=== PATIENT | female | born 1935 | race Caucasian/White ===

== ENCOUNTER 2021-09-22 10:16 | Observation (INO) ==
[2021-09-22 12:39] LABS: Bacteria,Urine Few per hpf (None-Few); Bilirubin,Urine Negative (Negative); Blood,Urine Negative (Negative); Clarity,Urine Clear (Clear); Color,Urine Light-Yellow (Yellow); Glucose,Urine (UA) Normal (Normal); Ketones,Urine Negative (Negative); Leukocyte Esterase,Urine Small (Negative); Mucus,Urine Few per lpf (None-Few); Nitrite,Urine Positive (Negative); PH,Urine 6.5 pH Units (5.0-8.0); Protein,Urine Negative (Neg-Trace); RBC,Urine 0-3 per hpf (0-3); Specific Gravity,Urine 1.009 (1.010-1.025); Urobilinogen,Urine Normal (Normal)
[2021-09-22 12:45] LABS: Basophils % 0.7 %; Immature Granulocytes % 0.4 % (0-4); Mean Corpuscular Volume 62.5 fL (83.0-100.0); Red Cell Distribution Width 19.9 % (11.5-14.5)
[2021-09-22 12:46] LABS: Basophils # 0.1 K/mcL (0.0-0.2); Eosinophils # 0.1 K/mcL (0.0-0.6); Eosinophils % 1.1 %; Hematocrit 21.8 % (35.3-44.9); Lymphocytes # 1.6 K/mcL (0.6-4.6); Lymphocytes % 13.7 %; Mean Corpuscular HGB Conc 26.1 g/dL (31.6-35.5); Mean Corpuscular Hemoglobin 16.3 pg (28.0-33.3); Mean Platelet Volume 8.7 fL (9.4-12.4); Monocytes # 1.5 K/mcL (0.0-1.3); Monocytes % 12.5 %; Neutrophils # 8.5 K/mcL (1.6-8.9); Platelet Count 545 K/mcL (140-400); Red Blood Count 3.49 M/mcL (3.82-4.97); Segmented Neutrophils % 71.6 %; White Blood Count 11.9 K/mcL (4.3-11.1)
[2021-09-22 12:56] LABS: Hemoglobin 5.7 g/dL (11.5-15.4)
[2021-09-22] MEDS ORDERED: cefTRIAXone 1,000 MG in Water for inj. (sterile) 10 ML IVP ONE (13:01)
[2021-09-22 13:05] LABS: BUN/Creatinine Ratio 29 (6-26); Blood Urea Nitrogen 24 mg/dL (8-23); Calcium 8.6 mg/dL (8.6-10.3); Carbon Dioxide 24 mEq/L (23-29); Chloride 106 mEq/L (98-107); Glucose 104 mg/dL (70-105); Osmolality,Calculated 290 (280-300); Potassium 3.9 mEq/L (3.5-5.1); Sodium 138 mEq/L (136-145); eGFR For African Americans > 60 (> 60); eGFR For Non-African Americans > 60 (> 60)
[2021-09-22 13:06] LABS: Troponin I < 0.03 ng/mL (< 0.04)
[2021-09-22] MEDS ORDERED: Pantoprazole 40 MG VIAL IVP ONE (13:16)
[2021-09-22 13:17] LABS: Thyroid Stimulating Hormone 1.692 mcIU/mL (0.340-5.600)
[2021-09-22 13:39] LABS: Anisocytosis 1+ (Not Present); Hypochromasia Present (Not Present); Microcytosis Present (Not Present)
[2021-09-22] MEDS ORDERED: 0.9 % Sodium Chloride 250 ML ONE (14:28)
[2021-09-22 14:42] LABS: Ferritin < 8 ng/mL (10-120)
[2021-09-22 14:53] LABS: Immature Reticulocyte % 32.8 % (11.0-38.0); Retculocyte # 0.06 M/mcL (0.05-0.10); Reticulocyte % 1.6 % (1.6-2.8)
[2021-09-22] MEDS ORDERED: ALPRAZolam 0.25 MG TABLET PO ONE (15:26)
[2021-09-22] MEDS ORDERED: Cyanocobalamin (B-12) 1,000 MCG/ML VIAL IM ONE (15:26)
[2021-09-22] MEDS ORDERED: ALPRAZolam 0.25 MG TABLET PO PRN (15:27)
[2021-09-22] MEDS ORDERED: Melatonin 3 MG TABLET PO PRN (15:28)
[2021-09-22] MEDS ORDERED: Ondansetron 4 MG/2 ML VIAL IVP PRN (15:28)
[2021-09-22] MEDS ORDERED: Acetaminophen 325 MG TABLET PO PRN (15:28)
[2021-09-22 16:19] LABS: Alanine Aminotransferase 10 Units/L (7-52); Albumin 3.9 g/dL (3.5-5.7); Albumin/Globulin Ratio 1.2 (1.1-2.2); Alkaline Phosphatase 68 Units/L (34-104); Aspartate Amino Transferase 15 Units/L (13-39); Bilirubin,Direct 0.1 mg/dL (0.0-0.2); Bilirubin,Indirect 0.3 mg/dL (0.0-1.0); Bilirubin,Total 0.4 mg/dL (0.3-1.0); Globulin 3.2 g/dL (2.4-3.5); Lactate Dehydrogenase 177 Units/L (140-271); Total Protein 7.1 g/dL (6.4-8.9)
[2021-09-22 16:38] LABS: C-Reactive Protein 5 mg/L (Less than 10)
[2021-09-22] MEDS ORDERED: SODIUM CHLORIDE/NAHCO3/KCL/PEG 4,000 ML SOLN.RECON PO ONE (17:00)
[2021-09-22 17:14] LABS: Estimated Average Glucose 143 mg/dl; Hemoglobin A1C 6.6 %
[2021-09-22] MEDS: Pantoprazole 40 MG in 0.9 % Sodium Chloride Mini Bag 100 ML IVC SCH ×4 (18:20→23:38)
[2021-09-22 21:02] LABS: Hematocrit 26.4 % (35.3-44.9); Hemoglobin 7.6 g/dL (11.5-15.4)
[2021-09-23 00:24] LABS: Hematocrit 25.2 % (35.3-44.9); Hemoglobin 7.3 g/dL (11.5-15.4); Mean Corpuscular Volume 65.5 fL (83.0-100.0); Mean Platelet Volume 8.4 fL (9.4-12.4); Platelet Count 517 K/mcL (140-400); Red Blood Count 3.85 M/mcL (3.82-4.97); Red Cell Distribution Width 22.7 % (11.5-14.5)
[2021-09-23 00:43] LABS: BUN/Creatinine Ratio 22 (6-26); Blood Urea Nitrogen 16 mg/dL (8-23); Calcium 8.5 mg/dL (8.6-10.3); Carbon Dioxide 24 mEq/L (23-29); Chloride 105 mEq/L (98-107); Glucose 101 mg/dL (70-105); Magnesium 2.1 mg/dL (1.6-2.6); Osmolality,Calculated 287 (280-300); Phosphorous 3.3 mg/dL (2.7-4.5); Sodium 138 mEq/L (136-145); eGFR For African Americans > 60 (> 60); eGFR For Non-African Americans > 60 (> 60)
[2021-09-23] MEDS: Pantoprazole 40 MG in 0.9 % Sodium Chloride Mini Bag 100 ML IVC SCH (04:48)
[2021-09-23] MEDS ORDERED: Cyanocobalamin (B-12) 1,000 MCG TABLET PO SCH (09:00)
[2021-09-23] MEDS ORDERED: Pantoprazole 40 MG VIAL IVP SCH (09:00)
[2021-09-23] MEDS ORDERED: *HR* Propofol 200 MG/20 ML VIAL IVP ONE (12:58)
[2021-09-23] MEDS ORDERED: Lidocaine -MPF 2% 5 ML VIAL ONE (12:58)
[2021-09-23] MEDS ORDERED: *HR* Metoprolol 5 MG/5 ML VIAL IVP ONE (14:12)
[2021-09-23 16:05] VITALS: BP 172/71; PULSE 78; TEMP 98; O2SAT 99
== END 2021-09-23 16:17 | disposition home or self-care (01) ==
LOC: EMEROOARM 10:16 → 2ANU 10:16 → SUATTDRO 14:26 → 2ANU 16:44
PROVIDERS: ADMIT Internal Medicine; ATTEND Internal Medicine